=== PATIENT | female | born 1965 ===

== ENCOUNTER 2021-06-26 16:06 | Emergency (ER) ==
[~2021-06-26] VITALS: Ht 175.3 cm; Wt 100.0 kg
[2021-06-26 17:34] LABS: BASO # 0.1 K/mm3 (0.0-0.2); BASO % 0.6 % (0.0-2.0); EOS # 0.2 K/mm3 (0.0-0.7); EOS % 2.8 % (0.0-4.0); GRAN # 4.1 K/mm3 (1.4-6.5); GRAN % 51.7 % (42.2-75.2); HEMOGLOBIN 11.9 g/dl (12.5-16.0); LYMPH # 3.1 K/mm3 (1.2-3.4); LYMPH % 39.1 % (20.0-51.0); MEAN CELL VOLUME 80 fl (80.0-100.0); MEAN CORPUSCULAR HEMOGLOBIN 26 pg (27-31); MEAN CORPUSCULAR HGB CONC 33 g/dl (33.0-37.0); MEAN PLATELET VOLUME 9.8 fl (7.4-10.4); MONO # 0.5 K/mm3 (0.1-0.6); MONO % 5.7 % (1.7-9.3); PLATELET COUNT 320 K/mm3 (130-400); REDCELL DISTRIBUTION WIDTH-CV 13.2 % (11.5-14.5)
[2021-06-26 17:58] LABS: ERYTHROCYTE SEDIMENTATION RATE 13 mm/hr (0-30)
[2021-06-26 18:01] LABS: BILIRUBIN,TOTAL 0.3 mg/dL (0.2-1.2); C-REACTIVE PROTEIN 0.61 mg/dL (0.00-0.50); CALCIUM 9.6 mg/dL (8.4-10.2); CREATININE, serum 1.07 mg/dL (0.57-1.11); POTASSIUM 3.4 mmol/L (3.5-4.5); TOTAL PROTEIN 7.7 gm/dL (6.2-8.1)
== END 2021-06-26 18:50 | disposition home or self-care (01) ==
LOC: COL.ER 16:06
PROVIDERS: Physician Assistant
DX: M79.672 Pain in left foot (principal); M79.89 Other specified soft tissue disorders; R79.82 Elevated C-reactive protein (CRP); Z88.6 Allergy status to analgesic agent
CPT/HCPCS: J1170; J1885; J2405